=== PATIENT | female | born 1955 | race Caucasian/White ===

== ENCOUNTER 2016-10-03 02:54 | Emergency (ER) | payer OTHER ==
--- NOTE | ~2016-10-03 | ER ---
PATIENT'S NAME: ANAND [facility]OPEZ [facility] AGE: 61 Y [address] ROOM: [place] [address] LOCATION: ED ADMIT DATE: 10/03/2016 ER/Outpatient Report DISCHARGE DATE: 10/03/2016 FAMILY PHYSICIAN: Physician, Unknown ATTENDING PHYSICIAN: Cruz Lopez Admission date and time are documented on the medical record. I saw the patient at 0305 hours. CHIEF COMPLAINT: Medical clearance. HISTORY OF PRESENT ILLNESS: This patient is a 61-year-old female who was brought to the emergency room by [facility] for medical clearance. The patient was arrested and was going to be taken to residential after driving under influence of alcohol and trying to evade arrest. The patient had been drinking alcohol tonight. The patient has a long history of alcohol abuse and alcohol-related liver cirrhosis with liver failure. She has stage IV liver cancer, portal hypertension, esophageal varices, peptic ulcer disease, and ascites. She has had previous upper GI bleeds. She is little bit nauseated and complaining of some abdominal pain. She has not vomited any blood. No change in her stools. No headache, eyes, ears, nose, throat, neck, or spine pain. No fall or trauma. Little lightheaded, dizzy, but no syncope or near syncope. No chest pain or shortness of breath. Upper abdominal pain. No diarrhea or urinary symptoms. No skin eruptions or rash. No history of neuro changes, psych issues, or endocrine problems. HOME MEDICATIONS: See attached medication list. ALLERGIES: PENICILLIN, SULFA, AND ERYTHROMYCIN. SOCIAL HISTORY: Nonsmoker. Does drink alcohol. SIGNIFICANT PAST MEDICAL HISTORY: Bronchitis, alcoholic liver cirrhosis with liver failure, esophageal varices, portal hypertension, peptic ulcer disease, alcohol abuse, hepatitis C, stage IV liver cancer, ascites, upper GI bleed, and fibromyalgia. OPERATIONS: Esophagogastroduodenoscopy with variceal banding, right foot surgery, and leg surgery. PATIENT'S NAME: ANAND [facility]OPEZ [facility] AGE: 61 Y [address] ROOM: [place], [place] [address] LOCATION: ED ADMIT DATE: 10/03/2016 ER/Outpatient Report DISCHARGE DATE: 10/03/2016 FAMILY PHYSICIAN: Physician, Unknown ATTENDING PHYSICIAN: Cruz Lopez REVIEW OF SYSTEMS: All systems reviewed by me are negative with the exception of those discussed in the history of present illness. PHYSICAL EXAMINATION: VITAL SIGNS: Temperature 36 degrees Celsius, tympanic, pulse 66, respirations 16, blood pressure 102/59, and O2 sat on room air is 97%. HEAD: Normocephalic. EYES, EARS, NOSE, THROAT: Clear. Mucous membranes moist. Breath smells of alcoholic beverage. NECK: Negative. SPINE: Negative. LUNGS: Clear. Good air flow. No rales, rhonchi, or wheezes. HEART: Regular. Pulses are palpable. ABDOMEN: Soft. Tender in epigastric region. Bowel tones present. No organomegaly or abnormal mass palpable. No CVA tenderness. EXTREMITIES: Without peripheral edema, cyanosis, or deformity. NEUROVASCULAR: Intact. SKIN: Clear. LABORATORY DATA: PTT was 25, pro-time is 11.4 with an INR 1.08. White count was 3700, 50 segs, 40 lymphs, 9 monos, 1 eos, hemoglobin was 13.7, hematocrit 40.6, and platelet count was 63,000. Medical blood alcohol was 0.217. CPK was 207, CK-MB was 4.1, troponin was less than 0.04. CRP was less than 0.29. CMS was normal except for low potassium of 3.4, elevated glucose 106, elevated total bilirubin 1.7, elevated AST of 62, amylase was 100, and lipase was 306. EMERGENCY DEPARTMENT COURSE: I did give the patient 1 L of normal saline IV in the emergency room. Zofran 8 mg IV in the emergency room for nausea, vomiting. Protonix 40 mg IV in the emergency department. The patient had 1 episode of vomiting, nonbloody, no coffee-grounds emesis. She had no further vomiting or nausea following Zofran IV. IMPRESSION: 1. Medical clearance. 2. Upper abdominal pain, secondary to alcohol abuse, peptic ulcer disease. 3. History of alcoholic liver cirrhosis with liver failure, portal hypertension, and esophageal varices. 4. Stage IV liver cancer. 5. Hepatitis C. PLAN: The patient is discharged from the emergency department in police custody. PATIENT'S NAME: ANAND [facility]OPEZ [facility] AGE: 61 Y [address] ROOM: [place] [address] LOCATION: [facility] ADMIT DATE: 10/03/2016 ER/Outpatient Report DISCHARGE DATE: 10/03/2016 FAMILY PHYSICIAN: Physician, Unknown ATTENDING PHYSICIAN: Cruz Lopez Follow up with personal physician as needed. Continue present home medications and care. Avoid alcohol. Discussion ensued with the patient concerning my findings and recommendations, she understands. MD AC RAMOS/todl /[id number] d: 10/03/1631 t: 10/03/16 1814, OUTPATIENT REPORT
[~2016-10-03 02:54] MED LIST: ADVIL200 M1 PO; ALDACTONE100 MG PO; CIPRO500 MG PO; ELAVIL25 MG PO; GLUCAGON 1 MG PE1 MG SUB-Q; GLUCOSE4 GM PO; LASIX40 MG PO; MAGNESIUM OXID400 MG PO; MIRALAX17 GM PO; NEURONTIN100 MG PO; PAIN RELIEF650 MG PO; PROTONIX40 MG PO; VITAMIN B-1100 MG PO; ZOFRAN4 MG PO
[2016-10-03 04:00] LABS: BASOPHIL % 0.3 %; EOSINOPHIL % 0.5 %; HEMATOCRIT 40.6 % (33.0-46.0); HEMOGLOBIN 13.7 g/dL (10.0-15.0); IMMATURE GRANULOCYTE % 0.3 %; LYMPHOCYTE # 1.5 K/uL (0.8-4.0); LYMPHOCYTE % 40.2 %; MCHC 33.7 gm/dL (32.0-36.5); MCV 89.2 fl (83.0-98.0); MONOCYTE # 0.3 K/uL (0.0-1.0); NEUTROPHIL # (ANC) 1.8 K/uL (1.8-7.8); NEUTROPHIL % 49.7 %; NRBC % 0 /100WBC (0-0.00); PLATELET COUNT 63 K/uL (150-450); RDW-CV 17.3 % (11.9-14.6); WBC 3.7 K/uL (4.0-11.0)
[2016-10-03 04:01] LABS: MCH 30.1 pg (27.0-34.0); RBC 4.55 M/uL (3.50-5.50)
[2016-10-03 04:11] LABS: INR - (THERAPEUTIC) 1.08 (0.92-1.07); PROTIME 11.4 SECONDS (9.8-11.4)
[2016-10-03 04:18] LABS: ALBUMIN 3.8 gm/dL (3.5-5.0); ALK PHOS 96 IU/L (33-138); ALT 40 IU/L (12-78); ANION GAP 18.4 (10.0-19.0); AST 62 IU/L (10-40); BLOOD UREA NITROGEN 14 mg/dL (6-24); CALCIUM 9.3 mg/dL (8.5-10.5); CHLORIDE 101 mMol/L (96-110); CO2 23 mMol/L (22-32); CREATININE 0.8 mg/dL (0.5-1.1); ESTIMATED GFR (MDRD EQUATION) > 60; POTASSIUM 3.4 mMol/L (3.7-5.1); SODIUM 139 mMol/L (135-145); TOTAL BILIRUBIN 1.7 mg/dL (0.0-1.5); TOTAL PROTEIN 7.1 g/dL (6.0-8.4)
[2016-10-03 04:21] LABS: CPK 207 IU/L (21-215)
[2017-02-04] MEDS ORDERED: CORGARD40 MG PO (10:32)
== END 2016-10-03 05:08 | disposition disaster alternative care site (69) ==
LOC: GMED 02:54
PROVIDERS: Emergency Medicine
DX: F10.10 Alcohol abuse, uncomplicated (principal); K27.9 Peptic ulcer, site unspecified, unspecified as acute or chronic, without hemorrhage or perforation; K70.30 Alcoholic cirrhosis of liver without ascites; K76.6 Portal hypertension; C22.8 Malignant neoplasm of liver, primary, unspecified as to type; B19.20 Unspecified viral hepatitis C without hepatic coma; Z88.0 Allergy status to penicillin; Z88.2 Allergy status to sulfonamides; Z88.1 Allergy status to other antibiotic agents
CPT/HCPCS: C9113; G0480; J2405; J7030

== ENCOUNTER → 2017-02-08 | Day surgery (SDC) | payer OTHER ==
[~2017-02-08] VITALS: Ht 162.6 cm; Wt 64.2 kg
[~2017-02-08] MED LIST changes: +CORGARD40 MG PO
== END ==
LOC: GPOC 02-04 10:00 → GEND 07:41 → GPOC 10:00
PROC: 0DJ08ZZ Inspection of Upper Intestinal Tract, Via Natural or Artificial Opening Endoscopic (ICD-10-PCS; principal; 2017-02-08)
DX: I85.00 Esophageal varices without bleeding (principal); K44.9 Diaphragmatic hernia without obstruction or gangrene; E16.2 Hypoglycemia, unspecified; M19.90 Unspecified osteoarthritis, unspecified site; M79.7 Fibromyalgia; K21.9 Gastro-esophageal reflux disease without esophagitis; Z94.4 Liver transplant status; K59.00 Constipation, unspecified; Z88.0 Allergy status to penicillin; Z88.1 Allergy status to other antibiotic agents; Z88.2 Allergy status to sulfonamides; Z79.899 Other long term (current) drug therapy
CPT/HCPCS: J2001; J7030